=== PATIENT | female | born 1980 | race African-American/Black ===

== ENCOUNTER 2021-07-15 01:46 | Emergency (ER) | payer OTHER ==
[2021-07-15 02:27] VITALS: BP 146/84; PULSE 73; TEMP 98.3; BMI 43.0
[2021-07-15 03:14] LABS: EPI CELLS 1 /uL (0-25.1); HYALINE CASTS 0 /uL (0-3.1); PH,URINE 5.5 (5.0-8.0); URINE APPEARANCE TURBID; URINE BILIRUBIN 1+ (NEGATIVE); URINE COLOR ORANGE; URINE GLUCOSE (UA) NEGATIVE (NEGATIVE); URINE KETONE NEGATIVE (NEGATIVE); URINE LEUK ESTERASE 3+ (NEGATIVE); URINE NITRITE POSITIVE (NEGATIVE); URINE PROTEIN 3+ (NEGATIVE); URINE RBC 464 /uL (0-23.9); URINE WBC 8552 /uL (0-25.8)
[2021-07-15 06:02] LABS: YEAST NONE SEEN (NEGATIVE)
== END 2021-07-15 04:13 | disposition home or self-care (01) ==
LOC: JER 01:46
DX: R30.0 Dysuria (principal); R82.90 Unspecified abnormal findings in urine; N39.0 Urinary tract infection, site not specified
CPT/HCPCS: 81003; 87086; 87186; 99283-25

== ENCOUNTER 2022-02-18 00:10 | Emergency (ER) | payer OTHER ==
[2022-02-18 01:19] VITALS: BP 142/85; PULSE 62; TEMP 98.3; BMI 41.1
[2022-02-18 04:02] LABS: EPI CELLS 12 /uL (0-25.1); HYALINE CASTS 10 /uL (0-3.1); PH,URINE 6.5 (5.0-8.0); URINE APPEARANCE CLOUDY; URINE BACTERIA >9,000 /uL (0-1359); URINE BILIRUBIN NEGATIVE (NEGATIVE); URINE COLOR DK YELLOW; URINE GLUCOSE (UA) NEGATIVE (NEGATIVE); URINE KETONE NEGATIVE (NEGATIVE); URINE LEUK ESTERASE 3+ (NEGATIVE); URINE NITRITE POSITIVE (NEGATIVE); URINE PROTEIN 3+ (NEGATIVE); URINE RBC 76 /uL (0-23.9); URINE WBC 3719 /uL (0-25.8)
== END 2022-02-18 04:27 | disposition home or self-care (01) ==
LOC: JER 00:10
DX: N30.01 Acute cystitis with hematuria (principal)
CPT/HCPCS: 81003; 84703; 87086; 87186; 99283-25